=== PATIENT | female | born 1985 | race Caucasian/White ===

== ENCOUNTER 2019-06-15 10:50 | Outpatient (CLI) | payer OTHER ==
--- NOTE | 2019-06-17 02:55 | Ultrasound Report ---
Reason: POSITIVE TEST Procedure Date: 06/15/2019 Accession Number: [id number] / [id number] Procedure: US - OB First Trimester CPT Code: Final Report FULL RESULT: EXAM: FIRST TRIMESTER OBSTETRIC ULTRASOUND (Less than 11 weeks) EXAM DATE: 06/15/2019 10:51 AM. CLINICAL HISTORY: POSITIVE TEST. LMP: 04/23/2019. COMPARISONS: None for this . TECHNIQUE: Transabdominal and transvaginal ultrasound examination with static image documentation. CLINICAL DATES: EGA 7 weeks 4 days with ALBERTO 01/28/2020 based on LMP. ASSESSMENT: Gestational Sac: Single intrauterine. Mean gestational sac diameter: 34 mm = 8 weeks 4 days. Embryo: CRL (crown-rump length) 16 mm = 8 weeks 0 days. Cardiac activity: 169 beats per minute. Yolk sac: 3.1 mm. Amniotic fluid: Not accurately assessed at this gestational age. Early placenta: Not visible at this gestational age. Other: Small right anterior perigestational fluid collection measuring 3.1 x 0.6 x 0.6 cm. MATERNAL STRUCTURES: Uterus: Retroverted. Unremarkable. Cervix: Closed. Right Ovary/Adnexa: The ovary measures 1.6 x 3.1 x 1.5 cm, volume 3.9 cc. Unremarkable. Left Ovary/Adnexa: The ovary measures 3.1 x 2.3 x 1.9 cm, volume 7.2 cc. Corpus luteum cyst measuring 2.2 x 1.9 x 1.4 cm. Otherwise unremarkable. Free Fluid: Small free fluid in pelvic cul-de-sac. Other: None. IMPRESSION: 1. Single viable intrauterine at EGA 8 weeks 0 days with ALBERTO 01/25/2020 based on crown-rump length, which is concordant with clinical dates. 2. Assigned dating is ALBERTO 01/28/2020 based on LMP. 3. Small perigestational fluid collection compatible with subchorionic hematoma measuring 3.1 x 0.6 x 0.6 cm. 4. Small free fluid in the pelvis, nonspecific. RADIA
== END 2019-06-15 10:51 | disposition home or self-care (01) ==
LOC: DI 10:50
PROVIDERS: ATTEND Nurse Practitioner Obstetrics & Gynecology
DX: Z32.01 Encounter for pregnancy test, result positive (principal)
CPT/HCPCS: 76801; 76817

== ENCOUNTER 2019-06-26 07:00 | Outpatient (CLI) | payer OTHER ==
[2019-06-27 14:41] LABS: MUDS CUTOFF CONCENTRATIONS CUTOFF CONC BELOW:
[2019-06-27 14:53] LABS: AMPHETAMINE SCREEN,URINE NEGATIVE (NEGATIVE); BENZODIAZEPINES SCREEN, URINE NEGATIVE (NEGATIVE); COCAINE SCREEN URINE NEGATIVE (NEGATIVE); METHADONE SCREEN, URINE NEGATIVE (NEGATIVE); METHAMPHETAMINES SCREEN, URINE NEGATIVE (NEGATIVE); OPIATE SCREEN, URINE NEGATIVE (NEGATIVE); OXYCODONE SCREEN, URINE NEGATIVE (NEGATIVE); TRICYCLIC ANTIDEPRESSANT,URINE NEGATIVE (NEGATIVE)
[2019-06-27 14:54] LABS: PROPOXYPHENE SCREEN, URINE NEGATIVE (NEGATIVE)
[2019-06-27 21:23] LABS: TRICHOMONAS VAGINALIS DNA NEGATIVE (NEGATIVE)
== END 2019-06-26 23:59 | disposition home or self-care (01) ==
LOC: LAB.R 07:00
PROVIDERS: ATTEND Nurse Practitioner Obstetrics & Gynecology
DX: Z36.89 Encounter for other specified antenatal screening (principal)
CPT/HCPCS: 80306; 87086; 87491; 87591; 87661

== ENCOUNTER 2019-07-02 08:43 | Outpatient (CLI) | payer OTHER ==
[2019-07-02 12:31] LABS: BASOPHILS # (AUTO) 0.1 10^3/uL (0.0-0.1); BASOPHILS % (AUTO) 0.8 %; EOSINOPHILS # (AUTO) 0.2 10^3/uL (0.0-0.7); EOSINOPHILS % (AUTO) 2.4 %; HGB - HEMOGLOBIN 12.4 g/dL (12.0-16.0); LYMPHOCYTES % (AUTO) 26.9 %; MEAN CORPUSCULAR HEMOGLOBIN 25.6 pg (27.0-31.0); MEAN CORPUSCULAR HGB CONC 31.6 g/dL (32.0-36.0); MEAN CORPUSCULAR VOLUME 81.2 fL (81.0-99.0); MEAN PLATELET VOLUME 10.7 fL (7.9-10.8); MONOCYTES # (AUTO) 0.4 10^3/uL (0.0-1.0); MONOCYTES % (AUTO) 5.4 %; NEUTROPHILS # (AUTO) 4.8 10^3/uL (1.5-6.6); NEUTROPHILS % (AUTO) 64.2 %; PLT - PLATELET COUNT 252 10^3/uL (130-450); RED BLOOD COUNT 4.84 10^6/uL (4.20-5.40); RED CELL DISTRIBUTION WIDTH 14.2 % (12.0-15.0); WHITE BLOOD COUNT 7.4 x10^3/uL (4.8-10.8)
[2019-07-03 10:35] LABS: HEPATITIS B SURFACE ANTIGEN NON-REACTIVE (NON-REACTIVE); HEPATITIS C ANTIBODY NON-REACTIVE (NON-REACTIVE)
[2019-07-03 14:40] LABS: HIV AG/AB 4TH GEN NON-REACTIVE (NON-REACTIVE)
== END 2019-07-02 23:59 | disposition home or self-care (01) ==
LOC: LAB.WCP 08:43
PROVIDERS: ATTEND Nurse Practitioner Obstetrics & Gynecology
DX: Z36.89 Encounter for other specified antenatal screening (principal)
CPT/HCPCS: 36415; 81599; 85025; 86592; 86762; 86803; 86850; 86900; 86901; 87340; 87389

== ENCOUNTER 2019-09-04 10:02 | Outpatient (CLI) | payer OTHER ==
--- NOTE | 2019-09-05 14:05 | Ultrasound Report ---
Reason: Procedure Date: 09/04/2019 Accession Number: [id number] / [id number] Procedure: US - OB Detailed Eval CPT Code: Final Report FULL RESULT: EXAM: COMPLETE OBSTETRICAL ULTRASOUND EXAM DATE: 09/04/2019 11:17 AM. CLINICAL HISTORY: anatomic survey. COMPARISON: OB FIRST TRIMESTER 06/15/2019 10:51 AM. TECHNIQUE: Real-time sonographic evaluation of the fetus performed by the leg assembler. Multiple support representative static images were saved for review. Additional transvaginal imaging to more accurately evaluate cervical length/placental position/etc. DATING: Established EGA 19 weeks 1 day with ALBERTO 01/28/2020 based on LMP, provider stated. EGA 19 weeks 4 days with ALBERTO 01/25/2020 based on prior ultrasound . EGA 19 weeks 6 days with ALBERTO 01/20/2020 based on the current ultrasound. GENERAL EVALUATION Carpenter . Cardiac activity: 147 bpm. movement: Visualized. Presentation: Breech Placenta: Posterior position. No evidence for previa. Umbilical cord: 3 vessel cord. Central placental cord origin. Amniotic fluid: 14.8 MVP 5.16 cm. BIOMETRY Bi-Parietal Diameter (BPD): 4.87 cm, 20 weeks 5 days Head Circumference (HC): 17.68 cm, 20 weeks 1 day Abdominal Circumference (AC): 15.52 cm, 20 weeks 5 days Femur Length (FL): 3.04 cm, 19 weeks 3 days Estimated Weight: 334 g, 93.4 percentile for 19 weeks 1 day. ANATOMY The intracranial structures, profile, face/nose/lips, spine, 4 chamber heart and outflow tracts, stomach, abdominal wall and cord insertion, diaphragm, kidneys, bladder, and extremities were visualized and demonstrate no abnormality. MATERNAL STRUCTURES Uterus: Unremarkable. Cervix: Long and closed. Transabdominal length 5.4 cm. Right ovary/adnexa: Unremarkable. Left ovary/adnexa: Unremarkable. Free fluid: None. IMPRESSION: 1. Carpenter live intrauterine with gestational age 19 weeks 1 day based on stated dating/LMP. 2. Estimated weight is 93.4% for assigned dating. 3. Normal anatomic survey. No anatomic abnormalities are detected at this time. RADIA
== END 2019-09-04 10:03 | disposition home or self-care (01) ==
LOC: DI 10:02
PROVIDERS: ATTEND Advanced Practice Midwife
DX: Z36.89 Encounter for other specified antenatal screening (principal)
CPT/HCPCS: 76811

== ENCOUNTER 2019-10-31 09:11 | Outpatient (CLI) | payer OTHER ==
[2019-10-31 10:36] LABS: HGB - HEMOGLOBIN 10.2 g/dL (12.0-16.0); MEAN CORPUSCULAR HEMOGLOBIN 26.8 pg (27.0-31.0); MEAN CORPUSCULAR HGB CONC 31.4 g/dL (32.0-36.0); MEAN CORPUSCULAR VOLUME 85.3 fL (81.0-99.0); MEAN PLATELET VOLUME 9.4 fL (7.9-10.8); RED BLOOD COUNT 3.81 10^6/uL (4.20-5.40); RED CELL DISTRIBUTION WIDTH 12.7 % (12.0-15.0); WHITE BLOOD COUNT 9.2 x10^3/uL (4.8-10.8)
== END 2019-10-31 09:12 | disposition home or self-care (01) ==
LOC: LAB 09:11
PROVIDERS: ATTEND Advanced Practice Midwife
DX: Z36.89 Encounter for other specified antenatal screening (principal)
CPT/HCPCS: 36415; 82950; 85025; 85027

== ENCOUNTER 2019-12-26 08:30 | Outpatient (CLI) | payer OTHER ==
[2019-12-26 12:35] LABS: MEAN CORPUSCULAR HEMOGLOBIN 24.9 pg (27.0-31.0); MEAN CORPUSCULAR HGB CONC 30.5 g/dL (32.0-36.0); MEAN CORPUSCULAR VOLUME 81.8 fL (81.0-99.0); MEAN PLATELET VOLUME 11.2 fL (7.9-10.8); RED BLOOD COUNT 4.01 10^6/uL (4.20-5.40); RED CELL DISTRIBUTION WIDTH 13.8 % (12.0-15.0); WHITE BLOOD COUNT 9.3 x10^3/uL (4.8-10.8)
[2019-12-26 13:05] LABS: ALBUMIN 3.2 g/dL (3.2-5.5); ALBUMIN/GLOBULIN RATIO 0.9 (1.0-2.2); ALKALINE PHOSPHATASE 106 IU/L (42-121); ALT ALANINE AMINOTRANSFERASE < 10 IU/L (10-60); AST ASPARTATE AMINOTRANSFERASE 14 IU/L (10-42); BILIRUBIN,TOTAL 0.4 mg/dL (0.2-1.0); BUN - BLOOD UREA NITROGEN 9 mg/dL (6-20); CALCIUM 8.9 mg/dL (8.5-10.3); CARBON DIOXIDE - CO2 22 mmol/L (21-32); CHLORIDE 105 mmol/L (101-111); CHOL/HDL RATIO 2.7 (<4.4); CHOLESTEROL 278 mg/dL; CREATININE 0.5 mg/dL (0.4-1.0); GLUCOSE 77 mg/dL (70-100); HDL CHOLESTEROL 103 mg/dL; LDL CHOLESTEROL,CALCULATED 142 mg/dL; LDL/HDL RATIO 1.4 (<4.4); SODIUM 135 mmol/L (135-145); TOTAL PROTEIN 6.6 g/dL (6.7-8.2); VLDL CHOLESTEROL 33 mg/dL
== END 2019-12-26 23:59 | disposition home or self-care (01) ==
LOC: LAB.WCP 08:30
PROVIDERS: ATTEND Physician Assistant Medical
DX: Z34.90 Encounter for supervision of normal pregnancy, unspecified, unspecified trimester (principal)
CPT/HCPCS: 36415; 80053; 80061; 83721; 84443; 85027

== ENCOUNTER 2020-01-02 08:00 | Outpatient (CLI) | payer OTHER | END 2020-01-02 08:01 | disposition home or self-care (01) | LOC: LAB.R 08:00 | PROVIDERS: ATTEND Advanced Practice Midwife | DX: Z34.90 Encounter for supervision of normal pregnancy, unspecified, unspecified trimester (principal); Z36.85 Encounter for antenatal screening for Streptococcus B | CPT/HCPCS: 87797 ==

== ENCOUNTER 2020-01-10 08:00 | Outpatient (CLI) | payer OTHER ==
[2020-01-10 18:28] LABS: BASOPHILS % (AUTO) 0.4 %; EOSINOPHILS # (AUTO) 0.2 10^3/uL (0.0-0.7); EOSINOPHILS % (AUTO) 2.5 %; HGB - HEMOGLOBIN 10.2 g/dL (12.0-16.0); LYMPHOCYTES # (AUTO) 2.3 10^3/uL (1.5-3.5); LYMPHOCYTES % (AUTO) 23.3 %; MEAN CORPUSCULAR HEMOGLOBIN 24.9 pg (27.0-31.0); MEAN CORPUSCULAR VOLUME 80.2 fL (81.0-99.0); MONOCYTES # (AUTO) 0.7 10^3/uL (0.0-1.0); MONOCYTES % (AUTO) 7.1 %; NEUTROPHILS # (AUTO) 6.4 10^3/uL (1.5-6.6); NEUTROPHILS % (AUTO) 66.1 %; PLT - PLATELET COUNT 214 10^3/uL (130-450); RED CELL DISTRIBUTION WIDTH 14.9 % (12.0-15.0); WHITE BLOOD COUNT 9.7 x10^3/uL (4.8-10.8)
== END 2020-01-10 23:59 | disposition home or self-care (01) ==
LOC: LAB.WCP 08:00
PROVIDERS: ATTEND Nurse Practitioner Obstetrics & Gynecology
DX: O99.019 Anemia complicating pregnancy, unspecified trimester (principal); D64.9 Anemia, unspecified; Z3A.00 Weeks of gestation of pregnancy not specified
CPT/HCPCS: 36415; 85025

== ENCOUNTER 2020-01-26 02:31 | Outpatient (CLI) | payer OTHER ==
[2020-01-26 03:30] VITALS: BP 112/75
== END 2020-01-26 03:15 | disposition home or self-care (01) ==
LOC: WFO 02:31 → FBP 02:33 → WFO 03:15
PROVIDERS: ATTEND Nurse Practitioner Obstetrics & Gynecology
DX: O47.1 False labor at or after 37 completed weeks of gestation (principal); Z3A.39 39 weeks gestation of pregnancy
CPT/HCPCS: 99213

== ENCOUNTER 2020-01-26 06:56 | Inpatient (IN) | payer OTHER ==
--- NOTE | 2020-01-26 07:03 | PROVIDER PROGRESS NOTE ---
- HPI Chief Complaint: Labor Check - Procedures OB Procedure Performed: NST - Plan Plan: S: Lisa presents today [facility] with complaints of contractions. She states they have been going on for the past several hours. She denies vaginal bleeding or leakage of fluid and reports +FM. Her partner is present for support. O: FHR baseline 130s, moderate variability, + accels, no decels Contractions palpate mild to moderate every 2-5 minutes with soft resting tone SVE closed/50/high, posterior, medium, vertex A: 34yo @ 39.5wks gestation GBS neg FHR Category I False labor P: Reviewed warning s/sx and when to present. Pt verbalized understanding and agrees to above plan. She denies further questions or concerns at this time. DIAGNOSIS: False labor NST start time: 237 stop time:304
[2020-01-26] MEDS ORDERED: TRANEXAMIC ACID 1,000 MG in SODIUM CHLORIDE 0.9% 100ML 100 ML IV PRN (07:20)
[2020-01-26] MEDS ORDERED: METHYLERGONOVINE 0.2 MG/ML VIAL IM PRN (07:20)
[2020-01-26] MEDS ORDERED: SODIUM CHLORIDE FLUSH 0.9% 10 ML SYRINGE IVP PRN (07:20)
[2020-01-26] MEDS ORDERED: LIDOCAINE-MPF 1% 30 ML VIAL ID PRN (07:20)
[2020-01-26] MEDS ORDERED: miSOPROStoL 200 MCG TABLET BC PRN (07:20)
[2020-01-26] MEDS ORDERED: CARBOPROST TROMETHAMINE 250 MCG/ML AMP IM PRN (07:20)
[2020-01-26] MEDS ORDERED: OXYTOCIN/SODIUM CHLORIDE 500 ML IV PRN (07:20)
[2020-01-26] MEDS ORDERED: OXYTOCIN 10 UNIT/ML VIAL IM PRN (07:20)
--- NOTE | 2020-01-26 07:50 | HISTORY & PHYSICAL EXAMINATION ---
Admit History - Visit Reason Visit Reason: Contractions - : 3 Parity: 2 Premature: 0 Ectopic: 0 : 0 Care: positive: [facility] Risk/History: positive: None Complications This : positive: None Smoking Status: Never smoker - Mother's Labs Mother's Blood Type: positive: O Mother's RH: positive: Positive GBS: positive: Group B Step Negative Rubella Status: positive: Immune - Other Maternal History Other Maternal History: HPI: This 34yo # 39.4wks gestation by LMP c/w 8wk U/S presents to [facility] with c/o contractions which have progressed in both frequency and intensity throughout the night. She denies vaginal bleeding or leakage of fluid. She reports +FM. She has been a patient of [facility] for the duration of her which has remained uncomplicated with the exception of mild anemia complicating for which she has been taking daily FeSo4 supplementation. In addition, she has a hx of HSV and has been taking TID acyclovir for prophylaxis since 36wks gestation as directed. She will be admitted to [facility] for active management. supportive at the bedside. Dating: LMP: 04/23/2019 Initial U/S @ 8.0wks c/w LMP dating Serial Exams: Agree OB Hx: G1: 03/06/2011; ; <12hrs, epidural, [facility]; female; [id number] G2: 03/19/2014; ; <12hrs, unmedicated, [facility]; male; 7lbs 8oz G3: Current Medications: PNV; Valacyclovir; FeSO4 Allergies: NKDA PMHx: HSV-2; anemia; Eczema Surgical Hx: none Social Hx: Never smoker. No ETOH of IVDA. Chao Family Hx: No significant course: Initial U/S: Initial ultrasound 06/15/2019 @ 8.0wks c/w LMP dating. ALBERTO 01/28/2020. O pos/Rubella immune Genetic testing: declines FAS: 19.1wks WNL. Posterior Placenta. 3VC. MARIBELL wnl. 93% EFW. No follow up indicated. Glucola: 97 TDAP: 11/06/2019 Flu shot- already received 01/01/2020 GBS at 36.2 weeks - negative (GC/CT deferred due to national shortage and low risk profile) HSV: Hx herpes - acyclovir started in 36th week Breast pump Rx: given 08/22/2019 MOD: Anticipate ; Chao; "wait and see" approach to pain management in labor. Two sons Marvin (6#10oz), Khari (7#6oz) Gender: SURPRISE!! (girl? Radha unsure, likes girl name Veena) DAD to announce gender, would like to catch? pp contraception: IUD (Mirena/Paragard) Physical Exam: Normocephalic, atraumatic Heart RRR w/o M/G/R Lungs CTAB Abdomen gravid, soft, nontender SVE 7/100/0, vertex; intact membranes FHR baseline 130s, moderate variability, + accels, no decels Contractions palpate strong every 2-4 minutes with soft resting tone Bilateral LE's no edema Mood is good Assessment: 34yo @ 39.5wks gestation c/w LMP dating Active labor FHR Category I GBS negative Plan: Admit for expectant management Continuous monitoring Anticipate Meds/Allgy - Home Medications Home Medications: Ambulatory Orders Medication Instructions Recorded Confirmed No Known Home Medications 10/14/12 10/14/12 - Allergies Allergies/Adverse Reactions: Allergies Allergy/AdvReac Type Severity Reaction Status Date / Time No Known Drug Allergies Allergy Verified 10/14/12 18:17
[2020-01-26 07:56] LABS: BASOPHILS # (AUTO) 0.1 10^3/uL (0.0-0.1); BASOPHILS % (AUTO) 0.4 %; EOSINOPHILS # (AUTO) 0.1 10^3/uL (0.0-0.7); EOSINOPHILS % (AUTO) 0.4 %; HGB - HEMOGLOBIN 11.8 g/dL (12.0-16.0); LYMPHOCYTES # (AUTO) 1.6 10^3/uL (1.5-3.5); LYMPHOCYTES % (AUTO) 11.7 %; MEAN CORPUSCULAR HGB CONC 32.8 g/dL (32.0-36.0); MEAN CORPUSCULAR VOLUME 79.3 fL (81.0-99.0); MEAN PLATELET VOLUME 11.3 fL (7.9-10.8); MONOCYTES # (AUTO) 0.5 10^3/uL (0.0-1.0); MONOCYTES % (AUTO) 3.9 %; NEUTROPHILS # (AUTO) 11.4 10^3/uL (1.5-6.6); NEUTROPHILS % (AUTO) 82.9 %; PLT - PLATELET COUNT 183 10^3/uL (130-450); RED BLOOD COUNT 4.54 10^6/uL (4.20-5.40); RED CELL DISTRIBUTION WIDTH 18.3 % (12.0-15.0); WHITE BLOOD COUNT 13.7 x10^3/uL (4.8-10.8)
[2020-01-26] MEDS ORDERED: LACTATED RINGERS 1,000 ML IV SCH (08:00)
[2020-01-26] MEDS ORDERED: SODIUM CHLORIDE FLUSH 0.9% 10 ML SYRINGE IVP SCH (09:00)
--- NOTE | 2020-01-26 09:18 | DELIVERY NOTE ---
Delivery Note - Labor Labor: positive: Spontaneous - Delivery Method Delivery Method: positive: Spontaneous vaginal delivery - Presentation Presentation: positive: Vertex, JASKARAN - right occiput anterior - Nuchal Cord Nuchal Cord: positive: Present, Reduced - Amniotic Fluid Description Amniotic Fluid Description: positive: Clear - Episiotomy Type Episiotomy Type: positive: None - Laceration Laceration: positive: 2nd degree, Perineal, Vaginal - Suture Suture Type: positive: Vicryl Suture Size: positive: 3-0 - Delivery Outcome Delivery Outcome: positive: Livebirth - Wagoner : positive: Placed in direct skin contact with mother, Stimulated, Warmed, [place] used Wagoner sex: positive: Male - Cord Cord: positive: 3 vessels - Placenta Placenta: positive: Intact, Spontaneous - Estimated Blood Loss Estimated Blood Loss (in cc): 200 - Post Delivery Events Post Delivery Events: positive: No post delivery events - Delivery Comments (Free Text/Narrative) Delivery Comments (Free Text/Narrative): Labor: This 34yo @ 39.5wks gestation by LMP c/w 8wk U/S presented on 01/26/2020 in active labor. SVE 7/100/0, vertex with intact membranes. FHR demonstrated Category I pattern throughout. Normal labor course. AROM occurred at 0803 and was noted to be a moderate amount of clear fluid. Patient progressed to c/c/+1 with spontaneous urge to push at 0824. : Normal of viable male on 01/26/2020 at 0835. Nuchal cord x 2 reduced. The was placed on maternal abdomen, stimulated, dried, and placed skin to skin. 's were 7/9 at 1 and 5 min respectively. Pitocin administered via IV for hemostasis. The umbilical cord was allowed to stop pulsating at which time it was doubly clamped by CNM and cut by FOB. 3VC. Cord blood was obtained. Gentle downward traction applied to umbilical cord for active management of the third stage. Placenta delivered spontaneously and intact at 0338. Fourth stage: Uterine fundus firm and there is no excessive bleeding. The perineum, vagina, and cervix were inspected and fount o have 2nd degree perineal laceration which was repaired using a 3-[address]-1 needle, in standard fashion under sterile conditions. Vaginal examination following repair was done. Tissues well approximated. initiated. Family bonding well. Both mother and baby were left in stable condition.
[2020-01-26] MEDS ORDERED: WITCH HAZEL/GLYCERIN 1 PAD TOP PRN (09:30)
[2020-01-26] MEDS ORDERED: HYDROCORTISONE 1% CREAM 28 GM TUBE PR PRN (09:30)
[2020-01-26] MEDS: ACETAMINOPHEN 500 MG TABLET PO SCH ×2 (10:01→17:50)
[2020-01-26] MEDS: IBUPROFEN 800 MG TABLET PO SCH ×3 (10:02→22:12)
[2020-01-26 21:29] VITALS: BP 107/80
[2020-01-27] MEDS ORDERED: DOCUSATE SODIUM 100 MG CAPSULE PO SCH (09:00)
[2020-01-27] MEDS ORDERED: DOCUSATE SODIUM 100 MG CAPSULE PO ONE (10:50)
[2020-01-27] MEDS ORDERED: IBUPROFEN 800 MG TABLET PO ONE (10:50)
[2020-01-27] MEDS ORDERED: ACETAMINOPHEN 500 MG TABLET PO ONE (10:50)
--- NOTE | 2020-01-27 16:22 | Labor Flowsheet ---
Labor Flowsheet Datetime Report Generated by CPN: 01/27/2020 16:22 Datetime: 01/26/2020 20:59 VITAL SIGNS NBP Sys/Phyllis/Mean (mmHg): 107 : 80 : 86 Pulse: 76 Datetime: 01/26/2020 11:50 SpO2 (%): 99 Datetime: 01/26/2020 10:30 Stage of : Recovery Respirations: 16 Datetime: 01/26/2020 09:45 PAIN Pain Scale: 5 Pain Presence: Intermittent Pain Type: Cramping Pain Location: Abdomen Pain Relief Measures: Pain Medication Given Datetime: 01/26/2020 09:00 Temperature (C): 36.6 Datetime: 01/26/2020 08:46 LaborFlag: Labor Datetime: 01/26/2020 08:35 ASSESSMENT A Monitor Mode: External US FHR Baseline Rate : 120 Variability: Moderate 6-25 bpm Decelerations: Variable Comments: interupted strip PATIENT CARE Oxygen Method: Room Air Datetime: 01/26/2020 08:30 UTERINE ACTIVITY Monitor Mode: Palpation Frequency (min): 2 Quality: Strong Duration (sec): 60 Pattern: Normal: <= 5 Contractions in 10 Minutes Resting Tone (Palpate): Relaxed Datetime: 01/26/2020 08:26 Patient Care Comments: birthing bar Datetime: 01/26/2020 08:24 STAGE 2 Pushing: Coached on Pushing; Urge to Push Pushing Position: Pushing with Contractions Pushing Progress: Descent with Pushing Datetime: 01/26/2020 08:22 Exam by: brandan Vaginal Exam Comments: anterior lip Datetime: 01/26/2020 08:10 FHR Baseline Changes: No Baseline Change Accelerations: 15X15 Category: Category II Datetime: 01/26/2020 08:03 VAGINAL EXAM Dilatation (cm): 8.0 Effacement (%): 100 Station: 0 Membrane Status: Ruptured Membranes Rupture Method: Artificial Amniotic Fluid Color: Clear Amniotic Fluid Amount: Moderate Vaginal Bleeding: None Cervix, Consistency: Soft Cervix, Position: Anterior Datetime: 01/26/2020 08:02 COMMUNICATION Communication: Provider at Bedside Communication Comments: charanjit brandan cnm Datetime: 01/26/2020 07:56 Patient Position/Activity: Birthing Ball
--- NOTE | 2020-01-27 17:30 | PROVIDER PROGRESS NOTE ---
Subjective - Prog Note Date Prog Note Date: 01/27/20 Prog Note Time: 10:00 - Subjective Pt reports feeling: Improved Subjective: Final Progress Note S: Radha is ambulatory in her room, FOB is holding baby. She reports her bleeding as light, and her pain as well controlled with ibuprofen. She says has been going well. O: Ambulatory without signs of discomfort Fundus firm Lochia light VSS A: 34yo s/p on 01/26/2020, day 1 well Perineum healing well P: Continue with routine care Evaluate for discharge home today Objective - Vital Signs/Intake & Output Intake & Output: Intake & Output 01/24/20 01/25/20 01/26/20 01/27/20 23:59 23:59 23:59 23:59 Intake Total 1500 Balance 1500 - Lab Results Fish Bones: 01/26/20 07:28
--- NOTE | 2020-01-27 17:31 | Discharge Plan ---
Discharge Plan Problem Reviewed?: Yes Disposition: Home, Self Care Condition: Good Diet: Regular Additional Instructions or Follow Up instructions: Follow up in 1, 3, and 6 weeks No Smoking: If you smoke, Please STOP! Call for help. Follow-up with: Yareli Weeks ARNP [Provider Admit Priv/Credential] -
--- NOTE | 2020-01-27 17:31 | DISCHARGE SUMMARY ---
Discharge Summary Discharge Date: 01/27/20 Condition at Discharge: Good Discharge Disposition: 01 Home, Self Care - HPI History of Present Illness: Admit Date 01/26/2020 Discharge Date 01/27/2020 Diagnosis on Admission: 1. A 34yo # 39.4wks gestation 2. Active Labor 3. HSV Positive- Acyclovir prophylaxis Diagnosis on Discharge 1. A 34yo s/p spontaneous vaginal delivery on 01/26/2020 2. Normal recovery Brief History: She is a patient at [facility] who presented on 01/26/2020 with complaints of contractions. The patient was found to contract every 2-4 minutes and her cervix was 7/100/0 station. She spontaneously delivered a viable male infant. Apgars were7 and 9- and 1 and 5 minutes respectively. EBL 200mL. The patient has a 2nd degree laceration that was repaired with 3-0 vicryl in usual fashion under sterile conditions. She has been doing well in her course. She is ambulating and tolera ting a regular diet. She is urinating without difficulty and her lochia is normal. Her pain is well controlled with oral medications. She will be discharged home today on day #1 without need for prescriptions. She intends to follow up with Midwifery at [facility] in 1, 3, and 6 weeks for routine visit. She has been given precautions to call if she has any worsening fevers, chills, abdominal pain, increased bleeding or foul smelling vaginal lochia. - ALLERGIES Allergies/Adverse Reactions: Allergies Allergy/AdvReac Type Severity Reaction Status Date / Time No Known Drug Allergies Allergy Verified 10/14/12 18:17 - MEDICATIONS Home Medications: Ambulatory Orders Medication Instructions Recorded Confirmed No Known Home Medications 10/14/12 10/14/12 - LABS Result Diagrams: 01/26/20 07:28
== END 2020-01-27 14:40 | disposition home or self-care (01) | DRG 806 ==
LOC: WFO 06:56 → FBP 06:58 → WFO 07:19 → FBP 07:20 → OBS 22:45
PROVIDERS: ADMIT Nurse Practitioner Obstetrics & Gynecology; ATTEND Advanced Practice Midwife
PROC: 10E0XZZ Delivery of Products of Conception, External Approach (ICD-10-PCS; principal; 2020-01-26)
PROC: 0KQM0ZZ Repair Perineum Muscle, Open Approach (ICD-10-PCS; 2020-01-26)
PROC: 10907ZC Drainage of Amniotic Fluid, Therapeutic from Products of Conception, Via Natural or Artificial Opening (ICD-10-PCS; 2020-01-26)
DX: O99.02 Anemia complicating childbirth (principal); O98.52 Other viral diseases complicating childbirth; Z37.0 Single live birth; D64.9 Anemia, unspecified; B00.9 Herpesviral infection, unspecified; O70.1 Second degree perineal laceration during delivery; O69.81X0 Labor and delivery complicated by cord around neck, without compression, not applicable or unspecified; Z3A.39 39 weeks gestation of pregnancy
CPT/HCPCS: 85025; A9270; G0378; J7120